=== PATIENT | female | born 1965 | race Caucasian/White ===

== ENCOUNTER → 2017-03-14 | Outpatient (CLI) | payer BC ==
[~2017-03-14] MED LIST: CEPH-583 PO; DULO30CA2 PO; DULO60CA46 PO; HYDR-4009 PO; HYDR-4246 PO; IBUP-1724 PO; LEVO88TA7 PO; LISI-127 PO; LOVA20TA71 PO; ONDA4TAB7 PO; [UNRECOGNIZED DRUG - OTHER]
--- NOTE | 2017-03-15 08:47 | DI ---
Indication: ITS.REASON: M79.672 PAIN IN LEFT FOOT PROCEDURE: ANKLE LEFT 3 VIEW: Encounter: Initial Comparison: None Findings: There is no acute fracture, dislocation or malalignment identified. Impression: No acute osseous abnormality. .
== END ==
LOC: IMA 17:06
PROVIDERS: ATTEND Family Medicine
DX: M79.672 Pain in left foot (principal)